=== PATIENT | male | born 1960 | race African-American/Black ===

== ENCOUNTER 2017-01-27 19:46 | Inpatient (IN) | payer OTHER ==
[~2017-01-27] VITALS: Ht 172.7 cm; Wt 145.4 kg
[2017-01-27] MEDS ORDERED: IPRATROPIUM/ALBUTEROL 0.5-3(2.5)MG/3ML NEB HHN ONE (20:15)
[2017-01-27] MEDS ORDERED: ACETAMINOPHEN 325MG TABLET PO STA (20:23)
[2017-01-27] MEDS ORDERED: ASPIRIN 325MG EC TABLET PO ONE (20:30)
[2017-01-27] MEDS ORDERED: LEVOFLOXACIN 750MG PREMIX 150 ML IV ONE (20:30)
[2017-01-27] MEDS ORDERED: SODIUM CHLORIDE 0.9% 1000ML BAG (SEPSIS BOLUS) IV ONE (20:30)
[2017-01-27 20:44] LABS: BASOPHILS % 0.3 % (0.0-2.0); EOSINOPHILS % 1.6 % (0.0-5.0); HEMATOCRIT. 36.6 % (42.0-52.0); HEMOGLOBIN. 11.9 g/dL (14.0-18.0); LYMPHOCYTES % 8.7 % (20.0-50.0); MEAN CORPUSCULAR HEMOGLOBIN 26.8 pg (28.0-32.0); MEAN CORPUSCULAR VOLUME 82.1 fL (80.0-94.0); MEAN PLATELET VOLUME 8.3 fl (7.4-10.4); MONOCYTES % 9.9 % (2.0-8.0); NEUTROPHILS % 79.5 % (40.0-76.0); PLATELET 292 x1000/uL (130-400); RED BLOOD CELL COUNT 4.46 mill/uL (4.7-6.1); RED CELL DISTRIBUTION WIDTH 14.6 % (11.6-14.6)
[2017-01-27 20:48] LABS: BG BASE EXCESS 0.8 mmol/L (-2.0-2.0); BG CARBOXYHEMOGLOBIN 0.6 % (0.5-1.5); BG DEOXYHEMOGLOBIN 6.4 % (0.0-5.0); BG FRACTION INSPIRED OXYGEN 28; BG HCO3 ACT 25.5 mmol/L (22.0-26.0); BG METHEMOGLOBIN 0.2 % (0.0-1.5); BG OXYGEN SATURATION 93.5 % (92.0-98.5); BG OXYHEMOGLOBIN 92.8 % (94.0-97.0); BG PCO2 41.4 mmHg (35.0-45.0); BG PH 7.408 (7.350-7.450); BG PO2 67.9 mmHg (75.0-100.0); BG SAMPLE SITE RIGHT RADIAL; BG TOTAL HEMOGLOBIN 12.9 g/dL (12.0-18.0); BG VENT MODE NASAL CANNULA
[2017-01-27 20:53] LABS: INR 1.1; PARTIAL THROMBOPLASTIN TIME 30.7 sec (23.4-31.0)
[2017-01-27 21:00] LABS: CARBON DIOXIDE 29 mEq/L (21-32); CHLORIDE 99 mEq/L (98-107); TROPONIN I 0.07 ng/mL (0.00-0.04)
[2017-01-27] MEDS ORDERED: FUROSEMIDE 40MG/4ML VIAL IV STA (22:00)
[2017-01-27] MEDS ORDERED: POTASSIUM CHLORIDE 20MEQ TABLET SR PO ONE (22:00)
[2017-01-27] MEDS ORDERED: NITROGLYCERIN OINT 1GM/INCH UDPKT TD STA (22:00)
[2017-01-28] VITALS (8 sets, daily range): BP systolic 141–172; BP diastolic 79–104
[2017-01-28] MEDS ORDERED: MORPHINE SULFATE 2 MG/ML CPJ (NOT FOR IM USE) IV PRN (01:00)
[2017-01-28] MEDS: CLONIDINE 0.2MG TABLET PO PRN ×2 (01:16→18:51)
[2017-01-28 06:17] LABS: BASOPHILS % 0.3 % (0.0-2.0); HEMOGLOBIN. 11.5 g/dL (14.0-18.0); LYMPHOCYTES % 10.3 % (20.0-50.0); MEAN CORPUSCULAR HEMOGLOBIN 26.7 pg (28.0-32.0); MEAN CORPUSCULAR VOLUME 83.2 fL (80.0-94.0); MEAN PLATELET VOLUME 8.4 fl (7.4-10.4); NEUTROPHILS % 75.4 % (40.0-76.0); PLATELET 283 x1000/uL (130-400); RED BLOOD CELL COUNT 4.33 mill/uL (4.7-6.1); RED CELL DISTRIBUTION WIDTH 14.7 % (11.6-14.6)
[2017-01-28 06:55] LABS: CARBON DIOXIDE 33 mEq/L (21-32); CHLORIDE 99 mEq/L (98-107)
[2017-01-28 06:56] LABS: CREATINE KINASE 954 IU/L (39-308); CREATINE KINASE MB FRACTION 7.1 ng/mL (0.5-3.6); TROPONIN I 0.04 ng/mL (0.00-0.04)
[2017-01-28] MEDS ORDERED: PNEUMOCOCCAL 23-VAL P-SAC VAC 0.5 ML IM ONE (09:00)
[2017-01-28] MEDS ORDERED: INFLUENZA VIRUS VACCINE 0.5ML SYR IM ONE (09:00)
[2017-01-28] MEDS: ENOXAPARIN 40MG/0.4ML SYR SUBCUT SCH ×2 (09:17→20:52)
[2017-01-28] MEDS ORDERED: POTASSIUM CHLORIDE 20MEQ TABLET SR PO SCH (11:15)
[2017-01-28] MEDS ORDERED: FUROSEMIDE 40MG/4ML VIAL IVP SCH (14:00)
[2017-01-28 15:23] LABS: CREATINE KINASE MB FRACTION 7.2 ng/mL (0.5-3.6); TROPONIN I 0.03 ng/mL (0.00-0.04)
[2017-01-28 16:00] LABS: HEPATITIS B SURFACE ANTIGEN NEGATIVE
[2017-01-28 16:28] LABS: HEPATITIS B CORE AB IGM NEGATIVE
[2017-01-28 16:29] LABS: HEPATITIS A AB IGM NEGATIVE (NEGATIVE)
[2017-01-28] MEDS ORDERED: MORPHINE SULFATE 4 MG/ML CPJ (NOT FOR IM USE) IV PRN (17:30)
[2017-01-28] MEDS ORDERED: LEVOFLOXACIN 500MG PREMIX 100 ML IV SCH (18:30)
[2017-01-28 18:46] LABS: CLARITY URINE CLEAR (CLEAR); COLOR URINE YELLOW (YELLOW); GLUCOSE URINE NEGATIVE (NEGATIVE); KETONES URINE NEGATIVE (NEGATIVE); LEUKOCYTE ESTERASE URINE NEGATIVE (NEGATIVE); NITRITE URINE NEGATIVE (NEGATIVE); OCCULT BLOOD URINE TRACE (NEGATIVE); PROTEIN URINE 2+ (NEGATIVE); SPECIFIC GRAVITY URINE 1.012 (1.005-1.030)
[2017-01-28] MEDS: POTASSIUM CHLORIDE 20MEQ TABLET SR PO SCH (18:51)
[2017-01-28 19:02] LABS: *AMPHETAMINES SCREEN URINE NEGATIVE (NEGATIVE); *BARBITURATES SCREEN URINE NEGATIVE (NEGATIVE); *BENZODIAZEPINES SCREEN URINE NEGATIVE (NEGATIVE); *COCAINE SCREEN URINE NEGATIVE (NEGATIVE); CANNABINOID URINE SCREEN PRESUMTIVE POSITIVE (NEGATIVE); METHADONE URINE SCREEN NEGATIVE (NEGATIVE); OPIATES URINE SCREEN NEGATIVE (NEGATIVE); PHENCYCLIDINE URINE SCREEN NEGATIVE (NEGATIVE)
[2017-01-28] MEDS: LEVOFLOXACIN 500MG PREMIX 100 ML IV SCH (20:52)
[2017-01-28] MEDS: GUAIFENESIN/CODEINE 100-10MG/5ML UDC PO PRN (22:20)
[2017-01-28] MEDS: ACETAMINOPHEN 325MG TABLET PO PRN (22:20)
[2017-01-29] VITALS: BP 157/97
[2017-01-29 04:00] VITALS: BP 128/96
[2017-01-29 07:26] LABS: BASOPHILS % 0.4 % (0.0-2.0); EOSINOPHILS % 3.9 % (0.0-5.0); HEMATOCRIT. 36.9 % (42.0-52.0); HEMOGLOBIN. 12.1 g/dL (14.0-18.0); LYMPHOCYTES % 10.5 % (20.0-50.0); MEAN CORPUSCULAR HEMOGLOBIN 27.4 pg (28.0-32.0); MEAN CORPUSCULAR VOLUME 83.9 fL (80.0-94.0); MEAN PLATELET VOLUME 8.6 fl (7.4-10.4); MONOCYTES % 11.5 % (2.0-8.0); NEUTROPHILS % 73.7 % (40.0-76.0); PLATELET 309 x1000/uL (130-400); RED CELL DISTRIBUTION WIDTH 14.7 % (11.6-14.6)
[2017-01-29 08:00] VITALS: BP 129/71
[2017-01-29 08:20] LABS: CARBON DIOXIDE 35 mEq/L (21-32); CHLORIDE 97 mEq/L (98-107); PHOSPHORUS 3.4 mg/dL (2.5-4.9)
[2017-01-29] MEDS ORDERED: POTASSIUM CHLORIDE 20MEQ TABLET SR PO SCH (09:00)
[2017-01-29] MEDS ORDERED: FUROSEMIDE 40MG/4ML VIAL IVP SCH (09:00)
[2017-01-29] MEDS: POTASSIUM CHLORIDE 20MEQ TABLET SR PO SCH (09:23)
[2017-01-29] MEDS: FUROSEMIDE 40MG/4ML VIAL IVP SCH ×2 (09:23→17:39)
[2017-01-29] MEDS: ENOXAPARIN 40MG/0.4ML SYR SUBCUT SCH ×2 (09:25→20:27)
[2017-01-29 12:00] VITALS: BP 131/81
[2017-01-29 16:00] VITALS: BP 142/97
[2017-01-29 20:00] VITALS: BP 147/97
[2017-01-29] MEDS: ACETAMINOPHEN 325MG TABLET PO PRN (20:27)
[2017-01-29] MEDS: LEVOFLOXACIN 500MG PREMIX 100 ML IV SCH (20:27)
[2017-01-29] MEDS: GUAIFENESIN/CODEINE 100-10MG/5ML UDC PO PRN (20:36)
[2017-01-30] VITALS: BP 157/89
[2017-01-30] MEDS: GUAIFENESIN/CODEINE 100-10MG/5ML UDC PO PRN ×2 (02:58→09:27)
[2017-01-30 04:00] VITALS: BP 157/98
[2017-01-30 08:00] VITALS: BP 120/80
[2017-01-30] MEDS: POTASSIUM CHLORIDE 20MEQ TABLET SR PO SCH (08:51)
[2017-01-30] MEDS: FUROSEMIDE 40MG/4ML VIAL IVP SCH ×2 (08:51→17:38)
[2017-01-30] MEDS: ENOXAPARIN 40MG/0.4ML SYR SUBCUT SCH (08:51)
[2017-01-30 12:00] VITALS: BP 125/81
[2017-01-30 16:00] VITALS: BP 130/74
[2017-01-30 18:43] VITALS: BP 130/88
== END 2017-01-30 20:02 | disposition home or self-care (01) | DRG 291 ==
LOC: ER 19:46 → 5WST 22:49 → EDBEDREQ 22:57 → EDBEDREQTM 22:57 → ENRESERV 23:54
PROVIDERS: ADMIT Internal Medicine Nephrology; ATTEND Internal Medicine Nephrology
DX: I11.0 Hypertensive heart disease with heart failure (principal); J18.9 Pneumonia, unspecified organism; J96.00 Acute respiratory failure, unspecified whether with hypoxia or hypercapnia; E44.0 Moderate protein-calorie malnutrition; Z68.42 Body mass index [BMI] 45.0-49.9, adult; I50.31 Acute diastolic (congestive) heart failure; E87.6 Hypokalemia; J20.9 Acute bronchitis, unspecified; G47.33 Obstructive sleep apnea (adult) (pediatric); E78.5 Hyperlipidemia, unspecified; E78.00 Pure hypercholesterolemia, unspecified; E66.9 Obesity, unspecified; Z90.49 Acquired absence of other specified parts of digestive tract; Z83.3 Family history of diabetes mellitus; Z82.49 Family history of ischemic heart disease and other diseases of the circulatory system
CPT/HCPCS: 36415; 36600; 71010; 76700; 80048; 80053; 80305; 81001; 82375; 82550; 82553; 82805; 83605; 83735; 83880; 84100; 84484; 85025; 85610; 85730; 86705; 86709; 86803; 87040; 87086; 87340; 87804; 90686; 90732; 93005; 93306; 96365; 96366; 96375; 99285; J1650; J1940; J1956; J7030; J7050